=== PATIENT | female | born 2000 | race Caucasian/White ===

== ENCOUNTER 2021-06-20 10:57 | Day surgery (SDC) | payer BC ==
[2021-06-20] MEDS ORDERED: Oxymetazoline HCl 0.05% ( 15 ML ) ONE (12:35)
[2021-06-20] MEDS ORDERED: EPINEPHrine 1 MG/ML AMP ONE (12:36)
[2021-06-20] MEDS ORDERED: Midazolam HCl 2 mg/2 ml Vial ONE (12:44)
[2021-06-20] MEDS ORDERED: Fentanyl 100 MCG/2 ML VIAL ONE ×2 (12:44→13:43)
[2021-06-20] MEDS ORDERED: PROPOFOL 20 ML ONE (12:44)
[2021-06-20] MEDS ORDERED: Lidocaine 2% PF 5 ML VIAL ONE (12:45)
[2021-06-20] MEDS ORDERED: Ondansetron PF 4 MG/2 ML Vial ONE (12:46)
[2021-06-20] MEDS ORDERED: Dexamethasone 20 MG/5 ML VIAL ONE (12:46)
[2021-06-20] MEDS ORDERED: Succinylcholine 200 MG/10 ml SYRINGE FS ONE (12:47)
== END 2021-06-20 15:09 | disposition home or self-care (01) ==
LOC: CSHERS 10:57 → CSHSDC 14:30 → CSHERS 15:00 → CSHSDC 15:09
PROVIDERS: ATTEND Otolaryngology Otolaryngic Allergy
DX: J02.9 Acute pharyngitis, unspecified (principal)
CPT/HCPCS: 99284; J0171; J1100; J2001; J2250; J2405; J2704; J3010